=== PATIENT | male | born 1950 | race Caucasian/White ===

== ENCOUNTER 2020-03-27 08:20 | Day surgery (SDC) | payer MEDICARE, BC ==
[~2020-03-27 08:20] MED LIST: Acetaminophen 325 MG Tab PO SCH; EPINEPHrine 1 MG/ML SDV ONE; Lidocaine 1%/Sod Bicarbonate in NS 8.4% 1 ML Syringe IDERM PRN; Morphine 8 MG, EPINEPHrine 0.3 MG, Cefuroxime 750 MG, Ketorolac 30 MG, Sodium Chloride ... PRN; Pregabalin 25 MG Cap PO SCH; Ropivacaine 0.5% 5 MG/ML 30 ML SDV ONE; Sodium Chloride 0.9% 10 ML Syringe FLUSH PRN; oxyCODONE ER 10 MG TAB.ER PO SCH
[2020-03-27] MEDS ORDERED: Bupivacaine 0.25% 10 ML SDV ONE (08:25)
[2020-03-27] MEDS ORDERED: Vancomycin 1 GM SDV ONE (08:25)
[2020-03-27] MEDS: Lactated Ringers 1,000 ML IV SCH ×2 (08:35→11:57)
[2020-03-27] MEDS ORDERED: Scopolamine 1.5 MG Transdermal Patch TOP SCH (08:35)
--- NOTE | 2020-03-27 09:06 | PCM.PREANE ---
Preanesthetic Assessment - Anesthesia/Transfusion/Family Hx Anesthesia History: Prior Anesthesia Without Reaction Type of Anesthesia Reaction: Excessive Nausea/Vomiting (scop patch on) Family History of Anesthesia Reaction: No Transfusion History: No Prior Transfusion(s) - Review of Systems General: No Symptoms, Other (covid negative) Pulmonary: No Symptoms Cardiovascular: No Symptoms, Other (CXR-SB) Gastrointestinal: No Symptoms Neurological: No Symptoms Other: Reports: None - Physical Assessment NPO Status Time: 22:00 Vital Signs: Last Vital Signs Temp 36.9 C 03/27/20 08:15 Pulse 54 L 03/27/20 08:15 Resp 16 03/27/20 08:15 BP 130/82 03/27/20 08:15 Pulse Ox 96 03/27/20 08:15 Height: 1.73 m Weight: 83.461 kg ASA Class: 2 Mental Status: Alert & Oriented x3 Airway Class: Mallampati = 2 Thyro-Mental Finger Breadths: 3 Mouth Opening Finger Breadths: 3 ROM/Head Extension: Full Lungs: Clear to Auscultation, Normal Respiratory Effort Cardiovascular: Regular Rate, Regular Rhythm - Lab Values: Laboratory Last Values MRSA (PCR) Negative 03/15/20 15:13 - Allergies Allergies/Adverse Reactions: Allergies Allergy/AdvReac Type Severity Reaction Status Date / Time Penicillins Allergy Edema Verified 03/24/20 11:47 - Blood Blood Available: No Product(s) Available: None - Anesthesia Plan Pre-Op Medication Ordered: None - Acknowledgements Anesthesia Type Planned: Spinal Pt an Appropriate Candidate for the Planned Anesthesia: Yes Alternatives and Risks of Anesthesia Discussed w Pt/Guardian: Yes Pt/Guardian Understands and Agrees with Anesthesia Plan: Yes PreAnesthesia Questionnaire HEENT History: Reports: Impaired Vision, Other (See Below) Other HEENT History: wears glasses, has upper denture Cardiovascular History: Reports: High Cholesterol, Other (See Below) Other Cardiovascular History: bradycardia Respiratory History: Reports: Other (See Below) Other Respiratory History: URI, strep pneumonae Gastrointestinal History: Reports: Other (See Below) Other Gastrointestinal History: rectal bleeding Genitourinary History: Reports: None GENERAL PASSENGER AGENT History: Reports: None Musculoskeletal History: Reports: Other (See Below) Other Musculoskeletal History: left knee degenerative joint disease, bilateral shoulder repairs, left elbow surgery Neurological History: Reports: Other (See Below) Other Neuro History: L3 lumbar radiculopathy Psychiatric History: Reports: None Endocrine/Metabolic History: Reports: None Hematologic History: Reports: Other (See Below) Other Hematologic History: hyperkalemia Immunologic History: Reports: None Oncologic (Cancer) History: Reports: None Dermatologic History: Reports: Other (See Below) Other Dermatologic History: breast lumpectomy - Past Surgical History Head Surgeries/Procedures: Reports: None Cardiovascular Surgical History: Reports: None Respiratory Surgical History: Reports: None GI Surgical History: Reports: None Female Surgical History: Reports: None Male Surgical History: Reports: None Endocrine Surgical History: Reports: None Neurological Surgical History: Reports: None Musculoskeletal Surgical History: Reports: None Oncologic Surgical History: Reports: None Dermatological Surgical History: Reports: None - SUBSTANCE USE Tobacco Use Status *Q: Former Tobacco User Days Per Week of Alcohol Use: 7 Number of Drinks Per Day: 2 Total Drinks Per Week: 14 Recreational Drug Use History: No - HOME MEDS Home Medications: Home Meds Acetaminophen [Tylenol] 650 mg PO Q6H PRN 03/24/20 [History] Calcium Citrate/Vitamin D3 [Citracal + D Maximum Caplet] 1 tab PO DAILY 03/24/20 [History] Cholecalciferol (Vitamin D3) [Vitamin D3] 2,000 unit PO DAILY 03/24/20 [History] Fish Oil/[place]-3 Fatty Acids [Fish Oil 1,000 MG] 2 g PO DAILY 03/24/20 [History] Multivitamin 1 tab PO DAILY 03/24/20 [History] Simvastatin [Zocor] 40 mg PO DAILY 03/24/20 [History] polyethylene glycoL 3350 [MiraLAX] 1 dose PO Q48H 03/24/20 [History] Aspirin [Aspirin EC] 325 mg PO BID #60 tab 03/27/20 [Rx] Cyclobenzaprine [Flexeril] 10 mg PO BID PRN #20 tab 03/27/20 [Rx] Rivaroxaban [Xarelto] 10 mg PO DAILY #14 tab 03/27/20 [Rx] oxyCODONE 5 - 10 mg PO Q4H PRN #60 tab 03/27/20 [Rx] - CURRENT (IN HOUSE) MEDS Current Meds: Current Medications Acetaminophen (Tylenol) 975 mg PO ONETIME YASHIRA Stop: 03/27/20 16:00 Last Admin: 03/27/20 08:28 Dose: 975 mg Documented by: Morphine Sulfate 8 mg/Epinephrine HCl 0.3 mg/Cefuroxime Sodium 750 mg/Ketorolac Tromethamine 30 mg/Sodium Chloride 7.9 ml 0 mg .XX ASDIRECTED PRN PRN Reason: Pain Stop: 03/27/20 14:00 Lactated Ringer's (Ringers, Lactated) 1,000 mls @ 125 mls/hr IV ASDIRECTED YASHIRA Stop: 03/27/20 23:00 Last Admin: 03/27/20 08:35 Dose: 125 mls/hr Documented by: Lidocaine/Sodium Bicarbonate (Buffered Lidocaine 1% In Ns 8.4%) 0.25 ml IDERM ONETIME PRN PRN Reason: Prior to IV Start Stop: 03/27/20 18:00 Last Admin: 03/27/20 08:34 Dose: 0.25 ml Documented by: Oxycodone HCl (Oxycontin) 10 mg PO ONETIME YASHIRA Stop: 03/27/20 16:00 Last Admin: 03/27/20 08:28 Dose: 10 mg Documented by: Pregabalin (Lyrica) 50 mg PO ONETIME YASHIRA Stop: 03/27/20 16:00 Last Admin: 03/27/20 08:28 Dose: 50 mg Documented by: Scopolamine (Transderm-Scop) 1.5 mg TOP ONETIME YASHIRA Stop: 03/27/20 14:00 Last Admin: 03/27/20 08:46 Dose: 1.5 mg Documented by: Sodium Chloride (Saline Flush) 10 ml FLUSH ASDIRECTED PRN PRN Reason: Keep Vein Open Stop: 03/27/20 18:00 Discontinued Medications Bupivacaine HCl (Sensorcaine-Mpf 0.25%) Confirm Administered Dose 30 ml .ROUTE .STK-MED ONE Stop: 03/27/20 08:26 Epinephrine HCl (Adrenalin) Confirm Administered Dose 1 mg .ROUTE .STK-MED ONE Stop: 03/27/20 07:21 Ropivacaine (Naropin 0.5%) Confirm Administered Dose 30 ml .ROUTE .STK-MED ONE Stop: 03/27/20 07:21 Tranexamic Acid (Cyklokapron) Confirm Administered Dose 1,000 mg .ROUTE .STK-MED ONE Stop: 03/27/20 08:26 Vancomycin HCl (Vancomycin) Confirm Administered Dose 1 gm .ROUTE .[facility] ONE Stop: 03/27/20 08:26
[2020-03-27] MEDS ORDERED: ceFAZolin 1 GM Vial ONE (09:12)
[2020-03-27] MEDS ORDERED: Propofol 200 MG/20 ML SDV ONE (09:13)
[2020-03-27] MEDS ORDERED: fentaNYL 100 MCG/2 ML SDV ONE (09:13)
[2020-03-27] MEDS ORDERED: Midazolam 1 MG/ML 2 ML SDV ONE (09:13)
[2020-03-27] MEDS ORDERED: ePHEDrine Sulfate/0.9% NaCl/Pf 25 MG/5 ML SYRINGE IV ONE (10:03)
[2020-03-27] MEDS ORDERED: Morphine 8 MG, EPINEPHrine 0.3 MG, Cefuroxime 750 MG, Ketorolac 30 MG, Sodium Chloride ... PRN ×5 (10:05)
[2020-03-27] MEDS ORDERED: Ondansetron 4 MG/2 ML SDV IVPUSH PRN (10:11)
[2020-03-27] MEDS ORDERED: Ondansetron 4 MG/2 ML SDV ONE (10:12)
[2020-03-27] MEDS ORDERED: Lactated Ringers 1,000 ML ONE (10:58)
[2020-03-27] MEDS ORDERED: Ketorolac 15 MG/ML SDV ONE (10:59)
[2020-03-27] MEDS: fentaNYL 100 MCG/2 ML SDV IVPUSH PRN ×2 (11:15→11:22)
--- NOTE | 2020-03-27 11:20 | PCM.POSTAN ---
POST ANESTHESIA ASSESSMENT - MENTAL STATUS Mental Status: Alert, Oriented - VITAL SIGNS Vital Signs: Last Vital Signs Temp 36.9 C 03/27/20 08:15 Pulse 54 L 03/27/20 08:15 Resp 16 03/27/20 08:15 BP 130/82 03/27/20 08:15 Pulse Ox 96 03/27/20 08:15 - RESPIRATORY Respiratory Status: Respiratory Rate WNL, Airway Patent, O2 Saturation Stable, Supplemental Oxygen - CARDIOVASCULAR CV Status: Pulse Rate WNL, Blood Pressure Stable - GASTROINTESTINAL GI Status: No Symptoms - PAIN Pain Score: 7 - POST OP HYDRATION Hydration Status: Adequate & Stable
--- NOTE | 2020-03-27 11:35 | PCM.SN.2 ---
- Free Text/Narrative Note: Left selective femoral nerve block at the adductor canal for post-procedure pain control under US guidance requested by Dr. Bae. Date: 03/27/20 Time Out: 1122 Start: 1125 End: 1126 Chart reviewed. Consent signed. Questions answered. Appropriate monitors applied. Time out performed. Left mid-shaft femur identified with ultrasound, scanning medially of femur, the femoral artery in the adductor canal visualized, and the femoral nerve located laterally to the artery. The skin was prepped lateral to the ultrasound probe with chlorahexadine times two. The 21ga 4 insulated block needle was inserted under direct ultrasound guidance into the adductor canal. 25mL of 0.5% ropivacaine with 1:200,000 epinephrine was injected circumferentially around the nerve with intermittent negative aspiration noted. Patient tolerated the procedure well. Sterile technique noted along with sterile gloves, mask, and sterile probe cover. See picture on progress note and vital signs on nurses notes. Block completed in PACU. Leticia Chacon CRNA
[2020-03-27] MEDS ORDERED: oxyCODONE 5 MG Tab PO PRN (11:42)
[2020-03-27] MEDS ORDERED: Cyclobenzaprine 10 MG Tab PO PRN (11:42)
--- NOTE | 2020-03-27 12:29 | PCM48HPAN ---
Post Anesthesia Note - EVALUATION WITHIN 48HRS OF ANESTHETIC Vital Signs in Normal Range: Yes Patient Participated in Evaluation: Yes Respiratory Function Stable: Yes Airway Patent: Yes Cardiovascular Function Stable: Yes Hydration Status Stable: Yes Pain Control Satisfactory: Yes Nausea and Vomiting Control Satisfactory: Yes Mental Status Recovered: Yes Vital Signs: Last Vital Signs Temp 97.9 F 03/27/20 12:03 Pulse 54 L 03/27/20 08:15 Resp 17 03/27/20 12:03 BP 114/78 03/27/20 12:03 Pulse Ox 95 03/27/20 12:03 - COMMENTS/OBSERVATIONS Free Text/Narrative:: Denies nausea. Pain has let up.
--- NOTE | 2020-03-30 14:56 | CR ---
PROCEDURE INFORMATION: Exam: XR Left Knee Exam date and time: 03/27/2020 11:15 AM Age: 69 years old Clinical indication: Condition or disease; Joint replacement status; Knee; Left; Additional info: Postop left knee replacement films TECHNIQUE: Imaging protocol: XR Left knee. Views: 1 or 2 views. COMPARISON: CR Bone Length Scanogram, Knee 3V Lt, Knee Standing AP Bi 10/12/2019 2:54 PM FINDINGS: Bones/joints: Postoperative changes of recent left TKA. The components appear well seated. Soft tissues: Soft tissue gas and soft tissue swelling about the left knee. IMPRESSION: Postoperative changes of recent left TKA. Thank you for allowing us to participate in the care of your patient. Dictated and Authenticated by: Reta Belcher MD 03/27/2020 12:58 PM Central Time ([place] & [place]) ELISEO
--- NOTE | 2020-04-05 09:39 | PCM.OPNOTE ---
- General Post-Op/Procedure Note Date of Surgery/Procedure: 03/27/20 Operative Procedure(s): left total knee arthroplasty Pre Op Diagnosis: left knee osteoarthrosis Post-Op Diagnosis: Same Anesthesia Technique: Local, MAC, Spinal Primary Surgeon: Alexei Bae Anesthesia Provider: Arpita Watts Fisheries Officer: Cassia Williamson Fisheries Officer: Echo Bowers EBReji in mLs: 200 Complications: None Condition: Good Free Text/Narrative:: 11/05 9mm 32x10
--- NOTE | 2020-04-07 09:10 | OR ---
DATE OF OPERATION: 03/27/2020 SURGEON: Alexei Bae MD OPERATION PERFORMED: Left total knee arthroplasty. PREOPERATIVE DIAGNOSIS: Left knee osteoarthrosis. POSTOPERATIVE DIAGNOSIS: Left knee osteoarthrosis. ANESTHESIA: Local MAC with spinal. ANESTHESIA PROVIDER: Arpita Watts. MANDATE RETAIL SERVICE MERCHANDISER: Cassia Williamson PA-C and Echo Bowers LPN ESTIMATED BLOOD LOSS: 200 mL. COMPLICATIONS: None. CONDITION: Stable. IMPLANTS: 1. [place] size 6 press-fit CR femur. 2. Alis size 6 press-fit tibial base plate. 3. Alis size 6, 9 mm CS polyethylene insert. 4. Alis size 32 x 10 mm press-fit asymmetric patella. DESCRIPTION OF PROCEDURE: The patient was identified in the preop holding area. Proper site was marked and identified by the surgeon. The patient was taken back to the operating theater. After adequate anesthesia, the patient's left lower extremity had a nonsterile tourniquet applied and it was sterilely prepped and draped in the usual sterile fashion. OR time-out was performed. The patient received 2 g IV Ancef. At this time, the left lower extremity was exsanguinated. Tourniquet was insufflated to 300 mmHg. Standard medial parapatellar incision was made. Medial parapatellar arthrotomy was created. Deep fibers of the MCL were raised and anterior fat pad was resected. At this time, attention was turned to the patella. Patella measured a 24, it was resected to a 14 for a 32 x 10 mm patella. Drill holes were then drilled and found to be in adequate position. The drill was then drilled in the distal femur and the intramedullary distal femoral cutting guide was then placed. 8 mm was resected off the distal femur and was found to be an adequate resection. Sizing guide was placed. It was found to be a size 6 press-fit CR femur that was shown on the implant record at the beginning of this dictation. The drill holes were drilled for the epicondylar axis using [place] line and epicondyles as reference. At this time, the 4-in-1 cutting block was placed. An anterior posterior and anterior and posterior chamfer cuts were then completed. Attention was turned to the tibia. The posterior medial lateral retractors were placed. The extramedullary tibial guide was placed. It was placed in the old footprint of the ACL. It was aligned with the center of the ankle and 0 degrees of slope, 9 mm was then resected off the unaffected side. There was found to be an acceptable reduction. At this time, posterior osteophytes were removed along with medial and lateral meniscus. A trial implant was placed with a correct sized tibia that was mentioned at the beginning of the dictation. A Alis size 6, 9 mm CS polyethylene insert was then placed. The patient's knee was brought through range of motion. The patella was tracking centrally and was stable to varus and valgus stress. Alignment was found to be roughly at 0 degrees. The tibia was stamped and drilled in proper rotation. The universal tibial base plate was impacted in place. Next, the [place] size 6 press-fit CR femur impacted into place and the [place] size 6, 9 mm CS polyethylene insert was placed. The patient's knee was brought into full extension. The patella was then press-fit in place at this time. Tourniquet was deflated. One liter dilute Betadine solution was irrigated through the knee along with 3 L of pulse lavage irrigation with Ancef. Periarticular injection was then completed. The patient's knee was brought through a range of motion. Once the cement had time to set up and it was found to be stable to varus valgus stress, the patella was tracking centrally with full range of motion. At this time, a #2 barbed suture was used for closure of the medial parapatellar arthrotomy. Topical tranexamic acid was placed. 2-0 Vicryl was used subcutaneously, Prineo was used for the skin. The patient tolerated the procedure well and was sent to the PACU in stable condition. MMIHSAN /[id number]
== END 2020-03-27 17:15 | disposition home or self-care (01) ==
LOC: JD.SDS 08:20
PROVIDERS: ATTEND Orthopaedic Surgery
DX: M17.32 Unilateral post-traumatic osteoarthritis, left knee (principal); Z01.812 Encounter for preprocedural laboratory examination; Z20.828 Contact with and (suspected) exposure to other viral communicable diseases; Z87.891 Personal history of nicotine dependence; E78.00 Pure hypercholesterolemia, unspecified; Z88.0 Allergy status to penicillin; Z79.899 Other long term (current) drug therapy
CPT/HCPCS: 01402; 64450; 73560-26-LT; 73560-LT; 87641; 97162-GP; 97165-GO; A9270-GY; C1776; J0171; J0690; J0697; J1885; J2250; J2270; J2405; J2704; J2795; J3010; J3370; J3490; J7120